=== PATIENT | female | born 1995 | race Caucasian/White ===

== ENCOUNTER 2021-05-27 22:39 | Emergency (ER) | payer BC ==
[2021-05-27] MEDS ORDERED: HYDROcodone/Acetaminophen 10/325 mg Tablet ONE (23:06)
[2021-05-27] MEDS ORDERED: Ibuprofen 800 MG TAB ONE (23:07)
== END 2021-05-27 23:21 | disposition home or self-care (01) ==
LOC: BURERS 22:39
DX: S40.011A Contusion of right shoulder, initial encounter (principal); S80.212A Abrasion, left knee, initial encounter; W19.XXXA Unspecified fall, initial encounter